=== PATIENT | male | born 1995 | race Caucasian/White ===

== ENCOUNTER 2017-01-02 03:16 | Inpatient (IN) | payer OTHER ==
[2017-01-02] VITALS (8 sets, daily range): BP systolic 111–152; BP diastolic 70–88; PULSE 62–123; TEMP 36.5–37.2; O2SAT 95–98; Ht 172.7 cm; Wt 70.1 kg
[~2017-01-02] VITALS: Ht 172.7 cm; Wt 70.1 kg
[2017-01-02] MEDS ORDERED: MoRPHine SULFATE 10 MG/ML CARP/VIAL IM STA (04:49)
[2017-01-02] MEDS ORDERED: ONDANSETRON INJ 2 MG/ML 2 ML VIAL IV STA (05:19)
[2017-01-02] MEDS ORDERED: MoRPHine SULFATE 4 MG/ML 1 ML CARP\\VIAL IV STA (05:19)
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
[2017-01-02] MEDS ORDERED: NURSING VERBAL MED ORDER ONE ×2 (05:30→20:15)
[2017-01-02 05:38] LABS: BASO % 0.2 %; BASO ABS # 0.02 K/uL (0-0.2); COMPLETE YES; EOS % 0.1 %; IG% 0.4 %; LYMPH % 12.4 %; LYMPH ABS # 1.38 K/uL (1.2-3.4); MEAN CELL VOLUME 81.4 fL (80-100); MEAN CORPUSCULAR HEMOGLOBIN 28.6 pg (25-34); MEAN CORPUSCULAR HGB CONC 35.1 g/dl (32-36); MEAN PLATELET VOLUME 9.4 fL (7.4-10.4); MONO % 3.3 %; NEUT % 83.6 %; PLATELET COUNT 287 K/uL (130-400); RED BLOOD COUNT 5.53 M/uL (4.7-6.1); WHITE BLOOD COUNT 11.12 K/uL (4.8-10.8)
[2017-01-02] MEDS ORDERED: AMPH20TA2 PO (05:40)
[2017-01-02 05:53] LABS: INR 1.1 (0.9-1.1)
[2017-01-02 05:54] LABS: BUN/CREATININE RATIO 19.2 (10-20); CREATININE 0.78 mg/dl (0.60-1.40)
[2017-01-02] MEDS ORDERED: SODIUM CHLORIDE 0.9% 1000ML 1,000 ML IV SCH (06:00)
[2017-01-02] MEDS ORDERED: CEFAZOLIN 1000MG/55 ML D5W IV SCH (06:00)
[2017-01-02] MEDS ORDERED: IV FLUIDS COMPLETED PRN (06:00)
[2017-01-02] MEDS ORDERED: CEFAZOLIN IV 2,000 MG/60 ML D5W IV SCH (06:00)
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
[2017-01-02 06:54] LABS: CALCIUM 8.6 mg/dl (8.5-10.1)
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
[2017-01-02] MEDS ORDERED: MoRPHine SULFATE 2 MG/ML CARP IV PRN (07:15)
[2017-01-02] MEDS ORDERED: MoRPHine SULFATE 4 MG/ML 1 ML CARP\\VIAL IV PRN (07:15)
[2017-01-02] MEDS: SODIUM CHLORIDE 0.9% 1000ML 1,000 ML IV SCH ×2 (08:30→15:48)
[2017-01-02] MEDS: MoRPHine SULFATE 2 MG/ML CARP IV PRN ×3 (09:32→21:56)
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
[2017-01-02] MEDS ORDERED: ROPIVACAINE 0.5% 5 MG/ML 30 ML VIAL ONE (10:57)
[2017-01-02] MEDS ORDERED: FENTANYL CITRATE INJ 50 MCG/1 ML 2 ML VIAL IV PRN (12:30)
[2017-01-02] MEDS ORDERED: ATROPINE SULFATE 0.1 MG/ML 5ML SYR IV PRN (12:30)
[2017-01-02] MEDS ORDERED: HYDROmorphone INJ 1 MG/ML SYR IV PRN (12:30)
[2017-01-02] MEDS ORDERED: ONDANSETRON INJ 2 MG/ML 2 ML VIAL IV PRN ×2 (12:30→18:00)
[2017-01-02] MEDS ORDERED: EpHEDrine SULFATE INJ 50 MG/ML AMP IV PRN (12:30)
[2017-01-02] MEDS ORDERED: SUCCINYLCHOLINE CHLORIDE 20 MG/ML 10 ML VIAL IV ONE (12:45)
[2017-01-02] MEDS ORDERED: MIDAZOLAM HCL 1 MG/ML 2ML VIAL ONE (12:45)
[2017-01-02] MEDS ORDERED: DEXAMETHASONE SOD INJ 4 MG/ML VIAL ONE (12:45)
[2017-01-02] MEDS ORDERED: LIDOCAINE HCL 2% 2 ML VIAL (20MG/ML) ONE (12:45)
[2017-01-02] MEDS ORDERED: ROCURONIUM BROMIDE 10 MG/ML 5 ML VIAL ONE (12:45)
[2017-01-02] MEDS ORDERED: PROPOFOL IV EMULSION 10 MG/ML 20 ML VIAL IV ONE (12:45)
[2017-01-02] MEDS ORDERED: ONDANSETRON INJ 2 MG/ML 2 ML VIAL ONE (12:45)
[2017-01-02] MEDS ORDERED: FENTANYL CITRATE INJ 50 MCG/1 ML 2 ML VIAL ONE ×2 (12:45→16:35)
[2017-01-02] MEDS ORDERED: CEFAZOLIN SOD 1 GM VIAL ONE (13:46)
[2017-01-02] MEDS ORDERED: NEOSTIGMINE METHYLSULFATE 5 MG/5 ML SYR ONE (14:54)
[2017-01-02] MEDS ORDERED: GLYCOPYRROLATE INJ 0.2 MG/ML VIAL ONE (14:54)
--- NOTE | 2017-01-02 17:30 | [facility] Post Operative Brief Note ---
Immediate Operative Summary Operative Date Jan 02, 2017. Pre-Operative Diagnosis Left closed, comminuted, displaced midshaft/distal 1/3 humerus fracture Post-Operative Diagnosis Left closed, comminuted, displaced midshaft/distal 1/3 humerus fracture Procedure(s) Performed Open Reduction Internal Fixation Midshaft/ Distal 1/3 Humerus Fracture with Triceps sparing posterolateral approach and locked Synthes posterolateral plate Surgeon Dr. Mk Patten Biomedical Analytical Scientist Surgeon(s) Raghu Bolden PA-C Estimated Blood Loss 60ML Findings See Dict Specimens none per surgeon Dr. Mk Patten Drains HV x 1 Anesthesia GLMA w/ regional block Complication(s) None Disposition Recovery Room / PACU
[2017-01-02] MEDS ORDERED: ZOLPIDEM TARTRATE 5 MG TAB PO PRN (18:00)
[2017-01-02] MEDS ORDERED: MAGNESIUM HYDROXIDE SUSP 30 ML UDC PO PRN (18:00)
[2017-01-02] MEDS ORDERED: ALUMINUM/MAGNESIUM/SIMETH (MAALOX MAX) 30 ML UDC PO PRN (18:00)
[2017-01-02] MEDS ORDERED: BISACODYL 10 MG SUPP PR PRN (18:00)
[2017-01-02] MEDS ORDERED: NO NSAIDS SCH (18:00)
[2017-01-02] MEDS ORDERED: SOD PHOSPHATE/SOD BIPHOSPHATE ENEMA 132 ML BTL PR PRN (18:00)
--- NOTE | 2017-01-02 18:29 | Anesthesiology Progress Note ---
Anesthesia Post Op Note Date & Time Jan 02, 2017 at 18:28 Vital Signs Pain Intensity: 0 Vital Signs Past 12 Hours Date Time Temp Pulse Resp B/P (MAP) Pulse Ox O2 Delivery O2 Flow Rate FiO2 01/02/17 18:20 94 14 144/89 97 Room Air 01/02/17 18:10 84 14 145/90 100 Mask 10 01/02/17 18:00 105 14 140/101 100 Mask 10 01/02/17 17:53 36. 100 12 149/82 100 Mask 10 01/02/17 07:15 98 Room Air Notes Mental Status: alert / awake / arousable, participated in evaluation Pt Amnestic to Procedure: Yes Nausea / Vomiting: adequately controlled Pain: adequately controlled Airway Patency, RR, SpO2: stable & adequate BP & HR: stable & adequate Hydration State: stable & adequate Anesthetic Complications: no major complications apparent
--- NOTE | 2017-01-02 18:42 | DIAGNOSTIC IMAGING REPORT ---
LEFT HUMERUS MIN 2 VIEW ROUTINE CLINICAL HISTORY: DISTAL HUMERAL FX COMPARISON: None. DISCUSSION: Image intensifier was utilized for intraoperative internal fixation of a distal humeral fracture IMPRESSION: Image intensifier usage Electronically signed by: Tony Bradley M.D. 01/02/2017 6:41 PM Dictated Date/Time: 01/02/2017 6:40 PM
--- NOTE | 2017-01-02 18:44 | DIAGNOSTIC IMAGING REPORT ---
LEFT HUMERUS MIN 2 VIEWS ROUTINE CLINICAL HISTORY: post op fracture COMPARISON: None. DISCUSSION: Anatomic alignment status post open reduction internal fixation of the distal left humeral fracture. Surgical drains are in position. IMPRESSION: Anatomic alignment status post open reduction internal fixation of a distal humeral fracture Electronically signed by: Tony Bradley M.D. 01/02/2017 6:42 PM Dictated Date/Time: 01/02/2017 6:41 PM
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
[2017-01-02] MEDS: OXYCODONE/ACETAMINOPHEN 5-325 TAB PO PRN (19:03)
[2017-01-02] MEDS: D5W AND 1/2NSS + 20MEQ KCL 1,000 ML IV SCH (19:46)
[2017-01-02] MEDS: CEFAZOLIN IV 2,000 MG in DEXTROSE 5% 50ML 50 ML IV SCH (19:46)
[2017-01-02] MEDS: DOCUSATE SODIUM 100 MG CAP PO SCH (21:19)
[2017-01-02] MEDS: SENNA 8.6 MG TAB PO SCH (21:20)
[2017-01-03] MEDS: MoRPHine SULFATE 2 MG/ML CARP IV PRN ×2 (00:24→03:35)
[2017-01-03 03:20] VITALS: BP 145/80; PULSE 71; TEMP 36.9; O2SAT 99
[2017-01-03] MEDS: CEFAZOLIN IV 2,000 MG in DEXTROSE 5% 50ML 50 ML IV SCH (03:36)
[2017-01-03] MEDS: OXYCODONE/ACETAMINOPHEN 5-325 TAB PO PRN ×4 (05:42→20:19)
[2017-01-03 06:05] LABS: HEMATOCRIT 42.3 % (42-52); MEAN CELL VOLUME 81.8 fL (80-100); MEAN CORPUSCULAR HEMOGLOBIN 27.7 pg (25-34); MEAN CORPUSCULAR HGB CONC 33.8 g/dl (32-36); MEAN PLATELET VOLUME 9.6 fL (7.4-10.4); PLATELET COUNT 242 K/uL (130-400); RED BLOOD COUNT 5.17 M/uL (4.7-6.1); WHITE BLOOD COUNT 7.16 K/uL (4.8-10.8)
[2017-01-03 06:43] LABS: BUN/CREATININE RATIO 12.8 (10-20); CALCIUM 8.3 mg/dl (8.5-10.1); CREATININE 0.88 mg/dl (0.60-1.40); POTASSIUM 3.8 mmol/L (3.5-5.1)
[2017-01-03 07:31] VITALS: BP 126/85; PULSE 82; TEMP 36.8; O2SAT 95
[2017-01-03] MEDS: D5W AND 1/2NSS + 20MEQ KCL 1,000 ML IV SCH ×2 (07:42→18:01)
--- NOTE | 2017-01-03 08:28 | Orthopedic Progress Note ---
Orthopedic Progress Note Date of Service Jan 03, 2017. Subjective Post OP Day: 1 Denies: chest pain, SOB, nausea / vomiting, calf pain Additional Notes: COMPLAINING OF 10/10 PAIN THIS AM. HAD 2 PERCOCET AT 0500 AND HAD IV MORPHINE AT 0024. Objective calves soft nontender, N/V intact, splint C/D/I, A&O x3, hemovac drainage (0 cc ) DOES NOT APPEAR TO BE IN A LOT OF DISCOMFORT. FINGERS MOBILE. MINIMAL SWELLING Date Time Temp Pulse Resp B/P (MAP) Pulse Ox O2 Delivery O2 Flow Rate FiO2 01/03/17 07:31 36.8 82 16 126/85 (99) 95 Room Air 01/03/17 03:20 36.9 71 14 145/80 (101) 99 Room Air 01/03/17 00:15 Room Air 01/02/17 23:21 36.9 62 14 133/71 (91) 98 Room Air 01/02/17 21:45 36.9 102 16 139/75 (96) 97 Room Air 01/02/17 20:45 36.5 115 18 131/87 (102) 95 Room Air 01/02/17 19:45 36.8 123 20 152/88 (109) 95 Room Air 123 01/02/17 19:15 36.8 98 14 138/85 (102) 96 Room Air 01/02/17 18:45 Room Air 01/02/17 18:45 95 Room Air 01/02/17 18:45 37.2 98 16 145/81 (102) 95 Room Air 01/02/17 18:30 36.4 85 14 135/84 95 Room Air 01/02/17 18:20 94 14 144/89 97 Room Air 01/02/17 18:10 84 14 145/90 100 Mask 10 01/02/17 18:00 105 14 140/101 100 Mask 10 01/02/17 17:53 36. 100 12 149/82 100 Mask 10 Laboratory Results 24 Hours: Test 01/03/17 05:33 Hematocrit 42.3 % Hemoglobin 14.3 g/dL Assessment & Plan Assessment: POD #1 SP ORIF LEFT HUMERUS Plan: CHANGE PERCOCET TO Q 4 HRS. MAY CONTINUE TO USE IV MORPHINE PRN, BUT MAY DELAY DISCHARGE IF NOT IMPROVING LATER THIS AM, MAY CONSIDER ADDING A LONG ACTING MED ENCOURAGE ICE AND ELEVATION TO LUE. Inhouse Planning Pain Management: Percocet (WILL CHANGE TO Q 4 HRS.), Morphine Discharge Planning Discharge Planning: home (PENDING PAIN CONTROL)
[2017-01-03] MEDS: DOCUSATE SODIUM 100 MG CAP PO SCH ×2 (09:39→21:35)
[2017-01-03] MEDS: ASPIRIN 81 MG ECTAB PO SCH (09:39)
[2017-01-03] MEDS: PANTOprazole SOD 40 MG TAB PO SCH (09:39)
[2017-01-03] MEDS: MULTIVITAMIN TAB PO SCH (09:40)
[2017-01-03 11:16] VITALS: BP 133/77; PULSE 79; TEMP 36.8; O2SAT 96
[2017-01-03 15:10] VITALS: BP 141/87; PULSE 91; TEMP 36.9; O2SAT 97
--- NOTE | 2017-01-03 21:11 | Orthopedic Progress Note ---
Orthopedic Progress Note Date of Service Jan 03, 2017. Subjective Reports: feeling well, Denies: chest pain, SOB, nausea / vomiting, light headedness Additional Notes: Pain improved throughout the day. Full normal sensation and motor function of the left hand, wrist and fingers per the patient. No fever or chills. Objective calves soft nontender, N/V intact, splint C/D/I, capillary refill less than 2 sec., dressing C/D/I, A&O x3 Splint intact. R/U/M/A intact for motor and sensation. Date Time Temp Pulse Resp B/P (MAP) Pulse Ox O2 Delivery O2 Flow Rate FiO2 01/03/17 20:10 Room Air 01/03/17 15:10 36.9 91 18 141/87 (105) 97 Room Air 01/03/17 11:16 36.8 79 16 133/77 (95) 96 Room Air 01/03/17 07:41 Room Air 01/03/17 07:31 36.8 82 16 126/85 (99) 95 Room Air 01/03/17 03:20 36.9 71 14 145/80 (101) 99 Room Air 01/03/17 00:15 Room Air 01/02/17 23:21 36.9 62 14 133/71 (91) 98 Room Air 01/02/17 21:45 36.9 102 16 139/75 (96) 97 Room Air Laboratory Results 24 Hours: Test 01/03/17 05:33 Hematocrit 42.3 % Hemoglobin 14.3 g/dL Assessment & Plan Assessment: POD #1 SP ORIF LEFT HUMERUS Plan: D/C hemovac in AM. Maintain splint for 12-14 days. Remove sutures in 14-15 days. ASA 81mg PO daily for 30 days F/U w/ Dr Patten in 13-15 days Inhouse Planning Pain Management: Percocet (WILL CHANGE TO Q 4 HRS.), Morphine Discharge Planning Discharge Planning: home (PENDING PAIN CONTROL)
[2017-01-03] MEDS: SENNA 8.6 MG TAB PO SCH (21:35)
[2017-01-03 23:04] VITALS: BP 127/78; PULSE 100; TEMP 37.1; O2SAT 96
[2017-01-04] MEDS: OXYCODONE/ACETAMINOPHEN 5-325 TAB PO PRN ×4 (01:39→10:42)
[2017-01-04 05:43] LABS: HEMATOCRIT 41.1 % (42-52); MEAN CELL VOLUME 81.1 fL (80-100); MEAN CORPUSCULAR HGB CONC 33.3 g/dl (32-36); PLATELET COUNT 268 K/uL (130-400); RED BLOOD COUNT 5.07 M/uL (4.7-6.1); WHITE BLOOD COUNT 8.07 K/uL (4.8-10.8)
[2017-01-04 06:23] LABS: BLOOD UREA NITROGEN 9 mg/dl (7-18); BUN/CREATININE RATIO 12.6 (10-20); CARBON DIOXIDE 28 mmol/L (21-32); CHLORIDE 99 mmol/L (98-107); CREATININE 0.72 mg/dl (0.60-1.40); GLUCOSE 118 mg/dl (70-99); POTASSIUM 3.8 mmol/L (3.5-5.1); SODIUM 133 mmol/L (136-145)
[2017-01-04 07:15] VITALS: BP 134/85; PULSE 89; TEMP 37; O2SAT 96
[2017-01-04] MEDS: D5W AND 1/2NSS + 20MEQ KCL 1,000 ML IV SCH (07:25)
[2017-01-04] MEDS: ASPIRIN 81 MG ECTAB PO SCH (08:35)
[2017-01-04] MEDS: PANTOprazole SOD 40 MG TAB PO SCH (08:35)
[2017-01-04] MEDS: MULTIVITAMIN TAB PO SCH (08:35)
[2017-01-04] MEDS: DOCUSATE SODIUM 100 MG CAP PO SCH (08:35)
[2017-01-04 08:38] VITALS: BP 134/85; PULSE 89; TEMP 37; O2SAT 96
--- NOTE | 2017-01-04 08:44 | Orthopedic Progress Note ---
Orthopedic Progress Note Date of Service Jan 04, 2017. Subjective Post OP Day: 2 Reports: feeling well, pain controlled w PO medications, Denies: chest pain, SOB , nausea / vomiting, light headedness Additional Notes: Awake, alert. States that the pain is controlled with the meds. No new complaints. Discussed discharge plans. He would like to talk to CM about possible needs here at [facility]. If help not available, pt may fly back out to [place] with his sister and follow up with aerotriangulation specialist out there. Objective dressing C/D/I, A&O x3, CMS intact Sling in place. Moving all fingers well. Mild swelling noted in fingers. Sensation intact. Upper nakul bandage loosened. Small amount of cotton wrap loosened. Hemovac drain removed without difficulty. Nakul re wrapped. Sling adjusted. Pt tolerated well. Date Time Temp Pulse Resp B/P (MAP) Pulse Ox O2 Delivery O2 Flow Rate FiO2 01/04/17 07:34 Room Air 01/04/17 07:15 37.0 89 16 134/85 (101) 96 Room Air 01/03/17 23:59 Room Air 01/03/17 23:04 37.1 100 18 127/78 (94) 96 Room Air 01/03/17 20:10 Room Air 01/03/17 15:10 36.9 91 18 141/87 (105) 97 Room Air 01/03/17 11:16 36.8 79 16 133/77 (95) 96 Room Air Laboratory Results 24 Hours: Test 01/04/17 05:30 Hematocrit 41.1 % Hemoglobin 13.7 g/dL Assessment & Plan Assessment: POD #2 SP ORIF LEFT HUMERUS Plan: Will see what CM will find out today for local help. Possible that patient may need to return to [place]. Maintain splint for 12-14 days. Remove sutures in 14-15 days. ASA 81mg PO daily for 30 days F/U w/ Dr Patten in 13-15 days Inhouse Planning Pain Management: Percocet (WILL CHANGE TO Q 4 HRS.), Morphine Discharge Planning Discharge Planning: home Pain Management: Percocet DVT Prophylaxis: ASA
[2017-01-04] MEDS ORDERED: ASPEC81 PO (08:49)
[2017-01-04] MEDS ORDERED: OXYC-57 PO (08:49)
--- NOTE | 2017-01-04 09:01 | Discharge Instructions ---
Discharge Instructions Date of Service Jan 04, 2017. Admission Reason for Admission: Distal Humeral Fracture Discharge Discharge Diagnosis / Problem: Left Distal Humerus Fracture Discharge Goals Goal(s): Decrease discomfort, Improve function Activity Recommendations Activity Limitations: per Instructions/Follow-up section Weightbearing Status: Left non-weightbearing (upper extremity) . Instructions / Follow-Up Instructions / Follow-Up Continue to use sling for support. May remove for changing clothes/bathing Keep dressing clean and dry. Please keep a waterproof covering over the splint if possible to keep it from getting wet. Keep the arm elevated on 1 or 2 pillows when at rest to help with swelling. Continue to flex and extend your fingers regularly. Call the office if you are having increasing pain, increasing numbness in the the hand or fingers, a temperature of 101.5 or greater. [phone] You will need to follow up with Dr Patten (or an Orthopedist in [place] should you decide to go home) in 2 weeks from the day of your surgery. If you follow up with Dr Patten, call [phone] to make an appointment with he or Raghu Bolden PA-C Current Hospital Diet Patient's current hospital diet: Vegetarian Diet Discharge Diet Recommended Diet: Vegetarian Diet Procedures Procedures Performed: Open Reduction Internal Fixation Midshaft/ Distal 1/3 Humerus Fracture with Triceps sparing posterolateral approach and locked Synthes posterolateral plate Pending Studies Studies pending at discharge: no Medical Emergencies . Who to Call and When: Medical Emergencies: If at any time you feel your situation is an emergency, please call 911 immediately. . Non-Emergent Contact Non-Emergency issues call your: Surgeon Call Non-Emergent contact if: temperature is above 101.5, your pain is not controlled, your pain is worsening, wound has increased drainage, wound has increased redness . "Provider Documentation" section prepared by Eleazar Maurer. . VTE Core Measure Inpt VTE Proph given/why not?: Other Anticoagulation [place] Drug Monitoring Program Search Results: patient reviewed within database, no issues identified
[2017-01-04 13:13] LABS: CALCIUM 8.6 mg/dl (8.5-10.1)
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
== END 2017-01-04 12:12 | disposition home or self-care (01) | DRG 494 ==
LOC: C.EDA 03:16 → EDBD 03:16 → C.3E 05:46 → ENRESERV 05:59
PROVIDERS: ADMIT Orthopaedic Surgery Sports Medicine; ATTEND Orthopaedic Surgery Sports Medicine
PROC: 0PSG04Z Reposition Left Humeral Shaft with Internal Fixation Device, Open Approach (ICD-10-PCS; principal; 2017-01-02 13:00)
DX: S42.402A Unspecified fracture of lower end of left humerus, initial encounter for closed fracture (principal); S80.212A Abrasion, left knee, initial encounter; S80.211A Abrasion, right knee, initial encounter; V47.1XXA Car passenger injured in collision with fixed or stationary object in nontraffic accident, initial encounter; Y92.410 Unspecified street and highway as the place of occurrence of the external cause; F10.129 Alcohol abuse with intoxication, unspecified; Y90.5 Blood alcohol level of 100-119 mg/100 ml; F17.200 Nicotine dependence, unspecified, uncomplicated